=== PATIENT | female | born 1975 | race Caucasian/White ===

== ENCOUNTER 2021-09-04 01:38 | Inpatient (IN) | payer BC ==
[2021-09-04] MEDS ORDERED: HYDROcodone/Acetaminophen 5/325 mg Tablet PO PRN (02:02)
[2021-09-04] MEDS ORDERED: Senokot S 8.6-50 MG TAB PO PRN (02:02)
[2021-09-04] MEDS ORDERED: Calcium Carbonate 500 MG ChewTAB PO PRN (02:02)
[2021-09-04] MEDS ORDERED: Zolpidem Tartrate 5 MG TAB PO PRN (02:02)
[2021-09-04] MEDS ORDERED: Guaifenesin DM 100-10/5 ML UDCUP PO PRN (02:02)
[2021-09-04] MEDS ORDERED: Albuterol Sulfate 2.5 mg/3 ml Neb NEB PRN (02:05)
[2021-09-04 02:12] VITALS: BMI 32.3
[2021-09-04] MEDS ORDERED: predniSONE 20 MG TAB PO SCH ×3 (02:15→11:00)
[2021-09-04] MEDS ORDERED: Albuterol Sulfate 2.5 mg/3 ml Neb NEB SCH (03:00)
[2021-09-04 03:16] LABS: SARS-CoV-2 NAA Rapid Test Not Detected (NotDetected)
[2021-09-04] MEDS: traZODone HCl 50 MG TAB PO PRN ×2 (03:22→20:48)
[2021-09-04 05:04] LABS: ALT (SGPT) 121 U/L (8-55); AST (SGOT) 113 U/L (5-34); Albumin 4.3 g/dL (3.5-5.0); Alkaline Phosphatase 49 U/L (40-110); Anion Gap 17 mmol/L (10-20); BUN (Urea Nitrogen) 14 mg/dL (7.0-18.7); Bilirubin, Total 0.4 mg/dL (0.2-1.2); Calc. Creatinine Clearance 120 mL/min (70-130); Calcium 9.5 mg/dL (7.8-10.44); Carbon Dioxide 19 mmol/L (22-29); Cardiac Risk 3.5 (Less than 4.5); Chloride 105 mmol/L (98-107); Cholesterol 179 mg/dl (< 200 Desired); Globulin 2.8 g/dL (2.4-3.5); Glucose 166 mg/dL (70-105); HDL Cholesterol 51 mg/dL (>60 Neg Risk); LDL Cholesterol, Calculated 92 mg/dL; Lipase 26 U/L (8-78); Potassium 3.9 mmol/L (3.5-5.1); Protein, Total 7.1 g/dL (6.0-8.3); Sodium 137 mmol/L (136-145); Triglycerides 178 mg/dL (Less than 150)
[2021-09-04 05:10] LABS: CKMB 3.8 ng/mL (0-6.6)
[2021-09-04 08:55] LABS: CKMB 3.2 ng/mL (0-6.6)
[2021-09-04] MEDS: Aspirin 81 mg Enteric Coated Tablet PO SCH (10:06)
[2021-09-04] MEDS: Acetaminophen 325 MG TAB PO PRN ×2 (10:07→14:22)
[2021-09-04] MEDS: Metoprolol Tartrate 25 MG TAB PO SCH ×2 (10:09→20:34)
[2021-09-04] MEDS: Lisinopril 2.5 MG TAB PO SCH (10:10)
[2021-09-04] MEDS: Loratadine 10 MG TAB PO SCH (10:11)
[2021-09-04] MEDS: Calcium Carbonate 600 MG + Vit D TAB PO SCH ×2 (10:11→20:34)
[2021-09-04] MEDS: ABEMACICLIB PO SCH ×2 (10:15→20:35)
[2021-09-04] MEDS: Enoxaparin Sodium 40 MG/0.4 ML SYRINGE SC SCH (10:24)
[2021-09-04] MEDS: Venlafaxine HCl XR 75 MG CAP PO SCH (10:25)
[2021-09-04] MEDS ORDERED: cefTRIAXone\\ROCEPHIN 1 GM in Sodium Chloride 0.9% 100 ML IVPB SCH (10:30)
[2021-09-04] MEDS ORDERED: Sodium Chloride 0.9% 1,000 ML IV SCH (10:45)
[2021-09-04 11:50] LABS: Hemoglobin A1c 5.1 % (4.0-6.0)
[2021-09-04] MEDS ORDERED: Sodium Chloride 0.9% 100 ML ONE ×2 (11:52→11:55)
[2021-09-04] MEDS: cefTRIAXone\\ROCEPHIN 2 GM in Sodium Chloride 0.9% 100 ML IVPB SCH (12:13)
[2021-09-04] MEDS: Azithromycin 500 MG in Sodium Chloride 0.9% 250 ML 250 ML IVPB SCH (14:21)
[2021-09-04] MEDS: Benzonatate 100 MG CAP PO PRN (14:21)
[2021-09-04] MEDS: Lorazepam 0.5 MG TAB PO PRN ×2 (14:22→20:48)
[2021-09-04] MEDS: Ondansetron PF 4 MG/2 ML Vial IVP PRN (14:56)
[2021-09-04 15:46] LABS: Lactic Acid 5.3 mmol/L (0.5-2.2)
[2021-09-04 17:34] LABS: HBSAg Index 0.25 S/CO (0-0.99); Hep A IgM AB Non-Reactive (NonReactive); Hep A IgM S/CO 0.23 S/CO (0-0.79); Hep B Surf Ag Non-Reactive S/CO (NonReactive); Hep C IgG Ab Non-Reactive (NonReactive); Hep C Index 0.11 S/CO (0-0.79); Hepatitis B Core IgM Abs Non-Reactive (NonReactive)
[2021-09-04] MEDS ORDERED: Atorvastatin Calcium 20 MG TAB PO SCH (21:00)
[2021-09-05 04:19] LABS: Actual Bicarbonate (HCO3v) 25 mEq/L (22-28); Calcium, Ionized (venous) 1.17 mmol/L (1.16-1.32); Chloride (VBG) 107 mmol/L (98-106); Hemoglobin (Hb) 9.9 g/dL (11.7-16.0); Potassium (VBG) 4.02 mmol/L (3.70-5.30); Puncture Site Other Site; RapidComm Collect By LAB.YY; Sodium 138.9 mmol/L (133-146); pH (venous) 7.36 (7.32-7.43)
[2021-09-05 04:29] LABS: #Monocytes 0.3 10x3/uL (0.0-1.1); #Neutrophils 3.3 10x3/uL (1.5-8.4); %Basophils 0.7 % (0.0-2.0); %Eosinophils 0.5 % (0.0-6.0); %Monocytes 6.8 % (0.0-10.0); %Neutrophils 74.1 % (40.0-75.0); Hemoglobin 9.3 g/dL (12.0-15.5); Mean Corpuscular HGB CONC 33.6 g/dL (32.0-36.0); Mean Corpuscular Hemoglobin 35.1 pg (27.0-33.0); Mean Corpuscular Volume 104.5 fl (81.6-98.3); Mean Platelet Volume 8.9 fl (7.4-10.4); Platelet Count 187 10x3/uL (150-450); RBC Distribution Width 14.5 % (11.5-14.5); Red Blood Cell (RBC) Count 2.65 10x6/uL (3.90-5.03); White Blood Cell (WBC) Count 4.4 10x3/uL (3.5-10.5)
[2021-09-05 04:42] LABS: Anion Gap 15 mmol/L (10-20); BUN (Urea Nitrogen) 14 mg/dL (7.0-18.7); Calc. Creatinine Clearance 126 mL/min (70-130); Carbon Dioxide 23 mmol/L (22-29); Chloride 108 mmol/L (98-107); Glucose 97 mg/dL (70-105); Magnesium 1.9 mg/dL (1.6-2.6); Sodium 142 mmol/L (136-145)
[2021-09-05] MEDS: Benzonatate 100 MG CAP PO PRN (05:26)
[2021-09-05] MEDS ORDERED: predniSONE 20 MG TAB PO SCH ×2 (08:00→10:00)
[2021-09-05] MEDS ORDERED: Magnesium 2 GM/50 ML(in water) 2 GM in Premix Bag 1 BAG IVPB SCH (08:00)
[2021-09-05] MEDS: Aspirin 81 mg Enteric Coated Tablet PO SCH (09:09)
[2021-09-05] MEDS ORDERED: Lorazepam 1 MG TAB PO PRN (09:10)
[2021-09-05] MEDS: Calcium Carbonate 600 MG + Vit D TAB PO SCH ×2 (09:11→21:02)
[2021-09-05] MEDS: Loratadine 10 MG TAB PO SCH (09:11)
[2021-09-05] MEDS ORDERED: Propranolol 10 MG TAB PO PRN (09:13)
[2021-09-05] MEDS: Lisinopril 2.5 MG TAB PO SCH (09:19)
[2021-09-05] MEDS: Venlafaxine HCl XR 75 MG CAP PO SCH (09:20)
[2021-09-05] MEDS: Enoxaparin Sodium 40 MG/0.4 ML SYRINGE SC SCH (09:20)
[2021-09-05] MEDS: Metoprolol Tartrate 25 MG TAB PO SCH (09:27)
[2021-09-05] MEDS: ABEMACICLIB PO SCH ×2 (09:47→21:11)
[2021-09-05] MEDS ORDERED: Mometasone/Formoterol 200/5 60 PUFF INH SCH (10:00)
[2021-09-05] MEDS ORDERED: Albuterol Sulfate 2.5 mg/3 ml Neb NEB SCH (10:30)
[2021-09-05] MEDS ORDERED: Levalbuterol HCl 0.63 MG/3 ML NEB NEB PRN (12:17)
[2021-09-05] MEDS: Acetaminophen 325 MG TAB PO PRN (13:03)
[2021-09-05] MEDS: cefTRIAXone\\ROCEPHIN 2 GM in Sodium Chloride 0.9% 100 ML IVPB SCH (13:05)
[2021-09-05] MEDS: Benzonatate 100 MG CAP PO SCH ×2 (14:55→21:02)
[2021-09-05] MEDS: Azithromycin 500 MG in Sodium Chloride 0.9% 250 ML 250 ML IVPB SCH (14:57)
[2021-09-05 17:01] LABS: ALT (SGPT) 103 U/L (8-55); AST (SGOT) 57 U/L (5-34); Albumin 3.9 g/dL (3.5-5.0); Alkaline Phosphatase 34 U/L (40-110); Bilirubin, Direct 0.1 mg/dL (0.1-0.3); Bilirubin, Total 0.3 mg/dL (0.2-1.2); Protein, Total 6.3 g/dL (6.0-8.3)
[2021-09-05] MEDS: Mometasone/Formoterol 200/5 60 PUFF INH SCH (19:45)
[2021-09-05] MEDS ORDERED: traZODone HCl 50 MG TAB PO SCH (21:00)
[2021-09-05] MEDS: Ondansetron PF 4 MG/2 ML Vial IVP PRN (21:10)
[2021-09-05] MEDS: ALBUTEROL INH SCH (21:46)
[2021-09-06] MEDS: ALBUTEROL INH SCH ×2 (01:32→06:37)
[2021-09-06 03:55] LABS: #Monocytes 0.2 10x3/uL (0.0-1.1); #Neutrophils 2.8 10x3/uL (1.5-8.4); %Basophils 1.1 % (0.0-2.0); %Eosinophils 1.1 % (0.0-6.0); %Lymphocytes 16.7 % (18.0-47.0); %Monocytes 6.1 % (0.0-10.0); %Neutrophils 73.7 % (40.0-75.0); Mean Corpuscular HGB CONC 34.2 g/dL (32.0-36.0); Mean Corpuscular Hemoglobin 35.4 pg (27.0-33.0); Mean Corpuscular Volume 103.5 fl (81.6-98.3); Mean Platelet Volume 8.7 fl (7.4-10.4); Platelet Count 191 10x3/uL (150-450); RBC Distribution Width 13.6 % (11.5-14.5); Red Blood Cell (RBC) Count 2.54 10x6/uL (3.90-5.03); White Blood Cell (WBC) Count 3.8 10x3/uL (3.5-10.5)
[2021-09-06 04:04] LABS: Lactic Acid 1.9 mmol/L (0.5-2.2)
[2021-09-06 04:07] LABS: INR-International Normal Ratio 0.9; PTT 20.9 sec (22.0-33.0)
[2021-09-06 04:09] LABS: ALT (SGPT) 80 U/L (8-55); AST (SGOT) 33 U/L (5-34); Albumin 3.7 g/dL (3.5-5.0); Alkaline Phosphatase 30 U/L (40-110); Anion Gap 14 mmol/L (10-20); BUN (Urea Nitrogen) 13 mg/dL (7.0-18.7); Bilirubin, Total 0.5 mg/dL (0.2-1.2); Calc. Creatinine Clearance 123 mL/min (70-130); Calcium 9.1 mg/dL (7.8-10.44); Carbon Dioxide 24 mmol/L (22-29); Chloride 105 mmol/L (98-107); Globulin 2.4 g/dL (2.4-3.5); Glucose 92 mg/dL (70-105); Iron 91 ug/dL (50-170); Iron Binding Capacity, Total 313 mcg/dL (265-497); Magnesium 2.5 mg/dL (1.6-2.6); Potassium 3.8 mmol/L (3.5-5.1); Protein, Total 6.1 g/dL (6.0-8.3); Sodium 139 mmol/L (136-145)
[2021-09-06] MEDS: Mometasone/Formoterol 200/5 60 PUFF INH SCH ×2 (07:55→19:48)
[2021-09-06] MEDS ORDERED: predniSONE 20 MG TAB PO SCH (08:00)
[2021-09-06] MEDS: Enoxaparin Sodium 40 MG/0.4 ML SYRINGE SC SCH (08:56)
[2021-09-06] MEDS: Aspirin 81 mg Enteric Coated Tablet PO SCH (08:57)
[2021-09-06] MEDS: Benzonatate 100 MG CAP PO SCH ×2 (08:58→16:25)
[2021-09-06] MEDS: Calcium Carbonate 600 MG + Vit D TAB PO SCH (08:58)
[2021-09-06] MEDS ORDERED: Multivit, Therapeutic 1 TAB PO SCH (09:00)
[2021-09-06] MEDS ORDERED: Loratadine 10 MG TAB PO SCH (09:00)
[2021-09-06] MEDS: ABEMACICLIB PO SCH (09:02)
[2021-09-06] MEDS: Ondansetron PF 4 MG/2 ML Vial IVP PRN (12:38)
[2021-09-06] MEDS: cefTRIAXone\\ROCEPHIN 2 GM in Sodium Chloride 0.9% 100 ML IVPB SCH (12:38)
[2021-09-06] MEDS ORDERED: cefTRIAXone\\ROCEPHIN 2 GM VIAL ONE (12:39)
[2021-09-06] MEDS: Azithromycin 500 MG in Sodium Chloride 0.9% 250 ML 250 ML IVPB SCH (14:49)
[2021-09-06 16:46] VITALS: BP 135/70; TEMP 97.1
== END 2021-09-06 19:30 | disposition home or self-care (01) | DRG 202 ==
LOC: CSHTELE 01:38 → OBSVTOIN 09-05 14:02
PROVIDERS: ADMIT Student in an Organized Health Care Education/Training Program; ATTEND Family Medicine
DX: J45.901 Unspecified asthma with (acute) exacerbation (principal); J18.9 Pneumonia, unspecified organism; I21.A1 Myocardial infarction type 2; C79.51 Secondary malignant neoplasm of bone; I13.0 Hypertensive heart and chronic kidney disease with heart failure and stage 1 through stage 4 chronic kidney disease, or unspecified chronic kidney disease; I50.32 Chronic diastolic (congestive) heart failure; E87.2 Acidosis; Z20.822 Contact with and (suspected) exposure to COVID-19; J30.2 Other seasonal allergic rhinitis; E78.5 Hyperlipidemia, unspecified; N18.2 Chronic kidney disease, stage 2 (mild); I77.819 Aortic ectasia, unspecified site; R74.01 Elevation of levels of liver transaminase levels; R73.9 Hyperglycemia, unspecified; D63.1 Anemia in chronic kidney disease; F41.9 Anxiety disorder, unspecified; D53.9 Nutritional anemia, unspecified; F31.9 Bipolar disorder, unspecified; C50.912 Malignant neoplasm of unspecified site of left female breast; E66.9 Obesity, unspecified; Z88.8 Allergy status to other drugs, medicaments and biological substances; Z91.041 Radiographic dye allergy status; Z79.899 Other long term (current) drug therapy; Z90.49 Acquired absence of other specified parts of digestive tract; Z98.51 Tubal ligation status; Z82.49 Family history of ischemic heart disease and other diseases of the circulatory system; Z87.891 Personal history of nicotine dependence; Z68.32 Body mass index [BMI] 32.0-32.9, adult
CPT/HCPCS: 36415; 76705; 80048; 80053; 80061; 80074; 80076; 80178; 82140; 82550; 82553; 82607; 82728; 82746; 82805; 83036; 83540; 83550; 83605; 83690; 83735; 83880; 84443; 84484; 85025; 85610; 85730; 87040; 87081; 93005; 93010; 93306; 94640; 94664; J0456; J0696; J1650; J2405; J3475; J3490; J7050; J7512; J7611; J7614; J7620

== ENCOUNTER 2025-02-24 16:41 | Emergency (ER) | payer BC ==
[2025-02-24 19:34] LABS: #Basophils 0.05 10x3/uL (0.0-0.2); #Eosinophils 0.23 10x3/uL (0.0-0.5); #Monocytes 0.82 10x3/uL (0.0-1.1); #Neutrophils 2.99 10x3/uL (1.5-8.4); %Basophils 0.9 % (0.0-2.0); %Eosinophils 4.1 % (0.0-6.0); %Lymphocytes 27.2 % (18.0-47.0); %Monocytes 14.5 % (0.0-10.0); %Neutrophils 52.8 % (40.0-75.0); Hematocrit 33.3 % (34.9-44.5); Hemoglobin 10.3 g/dL (12.0-15.5); Mean Corpuscular Hemoglobin 30.2 pg (27.0-33.0); Mean Corpuscular Volume 97.7 fL (81.6-98.3); Platelet Count 250 10x3/uL (150-450); Red Blood Cell (RBC) Count 3.41 10x6/uL (3.90-5.03); White Blood Cell (WBC) Count 5.66 10x3/uL (3.5-10.5)
[2025-02-24] MEDS ORDERED: Ketorolac Tromethamine 30 MG (1 mL) VIAL ONE (19:42)
[2025-02-24] MEDS ORDERED: diphenhydrAMINE 50 MG/ML VIAL ONE ×2 (19:42→21:13)
[2025-02-24 19:50] LABS: ALT (SGPT) 103 U/L (Less than 34); AST (SGOT) 101 U/L (11-34); Albumin 4.0 g/dL (3.1-4.5); Alkaline Phosphatase 78 U/L (40-110); Anion Gap 12 mmol/L (10-20); BUN (Urea Nitrogen) 13 mg/dL (9.8-20.1); Bilirubin, Total 0.6 mg/dL (0.3-1.2); Calc. Creatinine Clearance 0 mL/min (70-130); Calcium 9.8 mg/dL (7.8-10.44); Carbon Dioxide 26 mmol/L (22-29); Chloride 105 mmol/L (98-107); Globulin 3.4 g/dL (2.4-3.5); Glucose 82 mg/dL (70-105); Potassium 4.4 mmol/L (3.5-5.1); Sodium 139 mmol/L (136-145)
[2025-02-24 20:59] LABS: Glucose, Urine (Dipstick) 50 mg/dL (Negative); Leukocyte Negative (Negative); Protein, Urine (Dipstick) 15 mg/dl (Neg-Trace); Specific Gravity, Urine 1.020 (1.005-1.030)
[2025-02-24 21:02] LABS: Bacteria/HPF Rare-Few HPF (None Seen); CAUTI Indications for Culture Pelvic or flank pain; RBC/HPF 0-3 HPF (0-3); Urine Culture Reflex No No; WBC/HPF 0-3 HPF (0-3)
[2025-02-24] MEDS ORDERED: Droperidol 5 MG/2 ML VIAL ONE (21:13)
[2025-02-24] MEDS ORDERED: Acetaminophen 500 MG TAB ONE (21:13)
== END 2025-02-24 21:50 | disposition home or self-care (01) ==
LOC: CSHERS 16:41
DX: E86.0 Dehydration (principal); R33.9 Retention of urine, unspecified; I10 Essential (primary) hypertension
CPT/HCPCS: 51702; 74176; 80053; 81001; 83605; 85025; 96374; 96375; J1200; J1790; J1885; J2550

== ENCOUNTER 2025-03-19 18:35 | Emergency (ER) | payer BC ==
[~2025-03-19 18:35] MED LIST: Iopamidol 300 61% 100 ML VIAL FS ONE
[2025-03-19 19:37] LABS: #Basophils 0.05 10x3/uL (0.0-0.2); #Eosinophils 0.09 10x3/uL (0.0-0.5); #Monocytes 0.49 10x3/uL (0.0-1.1); #Neutrophils 4.52 10x3/uL (1.5-8.4); %Basophils 0.8 % (0.0-2.0); %Eosinophils 1.5 % (0.0-6.0); %Lymphocytes 13.7 % (18.0-47.0); %Monocytes 8.2 % (0.0-10.0); %Neutrophils 75.6 % (40.0-75.0); Hematocrit 35.7 % (34.9-44.5); Hemoglobin 11.6 g/dL (12.0-15.5); Mean Corpuscular Hemoglobin 31.1 pg (27.0-33.0); Mean Corpuscular Volume 95.7 fL (81.6-98.3); Platelet Count 372 10x3/uL (150-450); Red Blood Cell (RBC) Count 3.73 10x6/uL (3.90-5.03); White Blood Cell (WBC) Count 5.98 10x3/uL (3.5-10.5)
[2025-03-19] MEDS ORDERED: diphenhydrAMINE 50 MG/ML VIAL ONE (19:41)
[2025-03-19] MEDS ORDERED: Famotidine/PF 20 mg/2ml Vial ONE (19:41)
[2025-03-19] MEDS ORDERED: Pantoprazole 40 MG VIAL ONE (19:41)
[2025-03-19 19:56] LABS: ALT (SGPT) 82 U/L (Less than 34); AST (SGOT) 102 U/L (11-34); Albumin 4.0 g/dL (3.1-4.5); Alkaline Phosphatase 138 U/L (40-110); Anion Gap 16 mmol/L (10-20); BUN (Urea Nitrogen) 14 mg/dL (9.8-20.1); Bilirubin, Total 0.9 mg/dL (0.3-1.2); Calc. Creatinine Clearance 0 mL/min (70-130); Calcium 9.5 mg/dL (7.8-10.44); Carbon Dioxide 20 mmol/L (22-29); Chloride 101 mmol/L (98-107); Globulin 3.9 g/dL (2.4-3.5); Glucose 130 mg/dL (70-105); Lipase 16 U/L (8-78); Magnesium 2.3 mg/dL (1.6-2.6); Potassium 4.1 mmol/L (3.5-5.1); Sodium 133 mmol/L (136-145)
[2025-03-19 22:29] LABS: Lithium 0.177 mmol/L (1.0-1.2)
[2025-03-19 23:07] LABS: Glucose, Urine (Dipstick) Normal (Negative); Leukocyte Negative (Negative); Protein, Urine (Dipstick) 15 mg/dl (Neg-Trace); Specific Gravity, Urine 1.015 (1.005-1.030)
[2025-03-19 23:15] LABS: CAUTI Indications for Culture Dysuria,urgency,freq; RBC/HPF None Seen HPF (0-3); WBC/HPF None Seen HPF (0-3)
[2025-03-19] MEDS ORDERED: Promethazine HCl 12.5 MG, Admixture Fee 1 EACH in Sodium Chloride 0.9% 50 ML IVPB SCH (23:15)
[2025-03-19 23:16] LABS: Urine Culture Reflex No No
== END 2025-03-20 00:15 | disposition home or self-care (01) ==
LOC: CSHERS 18:35
DX: R11.2 Nausea with vomiting, unspecified (principal); R94.5 Abnormal results of liver function studies; C50.919 Malignant neoplasm of unspecified site of unspecified female breast; I10 Essential (primary) hypertension
CPT/HCPCS: 36415; 74177; 80053; 80178; 81001; 83605; 83690; 83735; 85025; 87086; 93005; 96374; 96375; 96376; J1200; J1308; J2470; J2550; J2919; Q9967